=== PATIENT | female | born 1950 | race Two or more races ===

== ENCOUNTER 2019-11-07 09:15 | Inpatient (IN) | payer OTHER ==
[~2019-11-07] VITALS: Ht 162.6 cm; Wt 77.1 kg
[2019-11-07] MEDS ORDERED: AVAPRO150 MG PO (11:53)
[2019-11-07] MEDS ORDERED: SIMVASTATIN1 GM (11:54)
[2019-11-13] MEDS ORDERED: OXYC1TAB9 PO (12:34)
[2019-11-13] MEDS ORDERED: LEVAQUIN750 MG PO (12:34)
== END 2019-11-13 13:49 | disposition home or self-care (01) | DRG 395 ==
LOC: EDSTATUS 09:15 → ADM 09:15 → O/R 11-10 05:47 → SURH 11-10 07:00
PROVIDERS: ADMIT Surgery; ATTEND Surgery
PROC: 0DBP8ZZ Excision of Rectum, Via Natural or Artificial Opening Endoscopic (ICD-10-PCS; principal; 2019-11-10 07:00)
DX: D12.8 Benign neoplasm of rectum (principal); M53.9 Dorsopathy, unspecified